=== PATIENT | female | born 1975 | race Caucasian/White ===

== ENCOUNTER → 2016-09-18 | Outpatient (CLI) | payer OTHER ==
[~2016-09-18] MED LIST: ALLERGY10 MG PO; CELEXA; EPIPEN0.3 MG/0.3 IM; FAMOTIDINE PO; IRON325; PREDNISONE 10 M10 M1 PO; REPLACE1 EACH PO
== END ==
LOC: RAD 01:28
DX: R92.8 Other abnormal and inconclusive findings on diagnostic imaging of breast (principal)

== ENCOUNTER → 2018-03-28 | Outpatient (CLI) | payer OTHER | LOC: RAD 01:58 | DX: Z12.31 Encounter for screening mammogram for malignant neoplasm of breast (principal) ==